=== PATIENT | male | born 1950 | race Hispanic/Latino ===

== ENCOUNTER 2019-03-05 11:17 | Outpatient (CLI) | payer MEDICARE ==
--- NOTE | 2019-03-05 12:13 | RAD ---
EXAM: XR Ribs Rt>=2 view STANDARD PROVIDED CLINICAL HISTORY: Right anterior rib pain. Patient fell one week ago. COMPARISON: None FINDINGS: No right-sided rib fracture is seen. The right lung is clear without pneumothorax or pleural effusion . 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 Surgical clips overlie the right upper quadrant. IMPRESSION: No right-sided rib fracture is visualized.
--- NOTE | 2019-03-05 13:47 | RAD ---
RIGHT ANKLE THREE VIEWS: HISTORY: Ankle pain status post fall one week ago. FINDINGS: A spur at the Achilles tendon insertion is noted. There is some minimal spurring at the tip of the me dial malleolus. There are no signs of fracture or joint effusion. IMPRESSION: No acute injury. POS: [facility]
--- NOTE | 2019-03-05 13:48 | RAD ---
RIGHT TIBIA AND FIBULA TWO VIEWS: HISTORY: Right tibia and fibula pain status post fall. FINDINGS: There are mild arthritic changes of the knee. There are no signs of fracture or dislocation. IMPRESSION: No evidence of fracture. POS: [facility]
--- NOTE | 2019-03-05 13:49 | RAD ---
TWO VIEWS OF THE LEFT TIBIA AND FIBULA: COMPARISON: None. HISTORY: Fall 1 week ago with left leg pain. FINDINGS: Two views of the left tibia/fibula show no evidence of acute fracture or dislocation. No degenerativ e changes are seen in the knee or ankle. IMPRESSION: Unremarkable exam. POS: [facility]
--- NOTE | 2019-03-05 13:54 | RAD ---
LEFT ANKLE 3 VIEWS: Date: 03/05/19 HISTORY: Ankle pain. Patient fell a week ago. FINDINGS: There are calcaneal spurs present. There are no signs of fracture, dislocation, or joint effusion. Mi nimal arthritic changes of the ankle joint are seen. IMPRESSION: No acute changes. POS: [facility]
== END 2019-03-05 11:18 | disposition home or self-care (01) ==
LOC: BICRAD 11:17
PROVIDERS: ATTEND Family Medicine
DX: M25.579 Pain in unspecified ankle and joints of unspecified foot (principal); M79.606 Pain in leg, unspecified; R07.81 Pleurodynia